=== PATIENT | female | born 1940 | race Caucasian/White ===

== ENCOUNTER → 2018-09-01 | Outpatient (CLI) | payer OTHER ==
[~2018-09-01] MED LIST: ? BP MED; ? CHOLESTEROL MED; ASPI325 PO; ATOR20 PO; CLOP75 PO; CYAN1000 PO; DULO60 PO; FENO145 PO; FERR325 PO; HYDR1TAB94 PO; IBUP600 PO; INS70/30I SC; LEVEMIR FL100 UNIT/1 SC; METF500 PO; METO25ER PO; Mirapex0.125 MG PO; NAPR550 PO; NITR.4SL SL; Percocet 5-3251 EACH PO; TELM40 PO; TELM80 PO; TOUJEO SOL300 UNIT/1 SQ; VENL150ER PO; [UNRECOGNIZED DRUG - REMARK]
[2018-09-01 11:42] LABS: BASOPHILS ABSOLUTE AUTO 0.03 K/mm3 (0.00-0.23); BASOPHILS PERCENT AUTO 0 % (0-2); EOSINOPHILS ABSOLUTE AUTO 0.06 K/mm3 (0.00-0.68); EOSINOPHILS PERCENT AUTO 1 % (0-6); Hematocrit 40.2 % (33.0-51.0); Hemoglobin 13.2 g/dL (11.5-16.0); IMMATURE GRAN ABSOLUTE AUTO 0.04 K/mm3 (0.00-0.10); IMMATURE GRAN PERCENT AUTO 0 % (0-1); LYMPHOCYTES ABSOLUTE AUTO 0.85 K/mm3 (0.84-5.20); LYMPHOCYTES PERCENT AUTO 8 % (21-46); MONOCYTES ABSOLUTE AUTO 0.63 K/mm3 (0.16-1.47); MONOCYTES PERCENT AUTO 6 % (4-13); Mean Corpuscular HGB 27.6 pg (26.0-34.0); Mean Corpuscular HGB Conc 32.8 g/dL (31.5-36.5); Mean Corpuscular Volume 84 fL (80-100); Mean Platelet Volume 10.2 fL (9.1-12.4); NEUTROPHILS ABSOLUTE AUTO 9.35 K/mm3 (1.96-9.15); NEUTROPHILS PERCENT AUTO 85 % (41-73); Platelet Count 314 K/mm3 (150-400); RDW Coefficient Variation 13.7 % (11.7-14.2); Red Blood Cell Count 4.79 M/mm3 (3.80-5.20); White Blood Cell Count 10.96 K/mm3 (4.00-11.30)
[2018-09-01 12:33] LABS: Albumin, Blood 4.1 g/dL (3.4-5.0); Albumin/Globulin Ratio 0.9 (0.8-1.8); Bilirubin, Total 0.6 mg/dL (0.1-1.0); Bun/Creatinine Ratio 17.9 (12.0-20.0); Calcium, Blood 8.7 mg/dL (8.5-10.1); Creatinine, Blood 2.35 mg/dL (0.40-1.00); Globulin, Blood 4.4 g/dL (2.2-4.0); Total Protein, Blood 8.5 g/dL (6.4-8.2)
[2018-09-01 12:34] LABS: Potassium, Blood 5.4 mmol/L (3.5-5.5)
== END ==
LOC: LAB EV 11:39 → LAB SHORT 11:39
PROVIDERS: Emergency Medicine
DX: R10.9 Unspecified abdominal pain (principal)
CPT/HCPCS: 80053; 83690; 85025

== ENCOUNTER → 2018-12-16 | Outpatient (CLI) | payer OTHER | END | disposition home or self-care (01) | LOC: LAB SHORT 14:06 → LAB 14:06 | DX: K62.89 Other specified diseases of anus and rectum (principal) | CPT/HCPCS: 87070; 87075; 87077; 87147; 87186; 87205 ==

== ENCOUNTER 2020-01-04 09:30 | Day surgery (SDC) | payer OTHER ==
[~2020-01-04] VITALS: Ht 165.1 cm; Wt 65.5 kg
[2020-01-04] MEDS ORDERED: Plavix75 MG (10:49)
--- NOTE | 2020-01-04 10:57 | NUR ---
01/04/20 1057 Lena Hudson 1 IV MISS IN [facility] BY [facility] 1 M[facility]V [facility] 1 MISSIED IV IN [facility] 1 MISSED IV IN RFA BY RN 1 IVMISS IN RH BY RN VEIN DISAPERRED 1 GOOD IV IN LAC BY RN PT TOW
--- NOTE | 2020-01-04 11:55 | NUR ---
01/04/20 1155 Luci Bernabe V PT AWAKE AND COMFORTABLE THROUGHOUT ENTIRE PROCEDURE. TOTAL OF 4MG IV VERSED GVIEN FOR SEDATION.
== END 2020-01-04 11:48 | disposition home or self-care (01) ==
LOC: ORSCSDS 09:30
PROVIDERS: Internal Medicine Gastroenterology
PROC: 0DBP8ZX Excision of Rectum, Via Natural or Artificial Opening Endoscopic, Diagnostic (ICD-10-PCS; principal; 2020-01-04 11:00)
DX: K62.5 Hemorrhage of anus and rectum (principal); K62.89 Other specified diseases of anus and rectum; E11.9 Type 2 diabetes mellitus without complications; E78.5 Hyperlipidemia, unspecified; F32.9 Major depressive disorder, single episode, unspecified; I73.9 Peripheral vascular disease, unspecified; Z87.891 Personal history of nicotine dependence; Z79.4 Long term (current) use of insulin; Z79.82 Long term (current) use of aspirin; Z79.84 Long term (current) use of oral hypoglycemic drugs; Z79.899 Other long term (current) drug therapy
CPT/HCPCS: 82947; 88305; 88312; J2250; J2704; J7120; J7799

== ENCOUNTER 2021-08-02 02:12 | Day surgery (SDC) | payer OTHER ==
[~2021-08-02 02:12] MED LIST changes: +Plavix75 MG
== END 2021-08-02 23:08 | disposition home or self-care (01) ==
LOC: WOUND 02:12
DX: L98.499 Non-pressure chronic ulcer of skin of other sites with unspecified severity (principal)
CPT/HCPCS: A9270; G0463

== ENCOUNTER 2021-08-08 01:19 | Day surgery (SDC) | payer OTHER | END 2021-08-08 23:06 | disposition home or self-care (01) | LOC: WOUND 01:19 | DX: L98.499 Non-pressure chronic ulcer of skin of other sites with unspecified severity (principal); Z88.0 Allergy status to penicillin | CPT/HCPCS: A9270; G0463 ==

== ENCOUNTER 2021-09-06 05:00 | Day surgery (SDC) | payer OTHER | END 2021-09-06 23:05 | disposition home or self-care (01) | LOC: WOUND 05:00 | DX: L98.499 Non-pressure chronic ulcer of skin of other sites with unspecified severity (principal); E11.9 Type 2 diabetes mellitus without complications | CPT/HCPCS: A9270; G0463 ==

== ENCOUNTER → 2021-09-11 | Outpatient (CLI) | payer OTHER | END | disposition home or self-care (01) | LOC: LAB 13:39 → LAB SHORT 13:39 | DX: K50.819 Crohn's disease of both small and large intestine with unspecified complications (principal); L98.498 Non-pressure chronic ulcer of skin of other sites with other specified severity; L92.8 Other granulomatous disorders of the skin and subcutaneous tissue | CPT/HCPCS: 83993 ==

== ENCOUNTER → 2023-05-03 | Outpatient (CLI) | payer OTHER ==
[~2023-05-03] MED LIST changes: +CATAPRES0.1 MG PO; +GABA300 PO; +[UNRECOGNIZED DRUG - OTHER] UD
[2023-05-03 18:45] LABS: Creatinine, Urine Random 79.8 mg/dL (27.00-270.00); Protein/Creat Ratio, Ur Random 0.6
== END | disposition home or self-care (01) ==
LOC: LAB 11:29 → LAB SHORT 11:29
PROVIDERS: Surgery
DX: N18.4 Chronic kidney disease, stage 4 (severe) (principal)
CPT/HCPCS: 82570; 84156

== ENCOUNTER → 2025-02-04 | Outpatient (CLI) | payer OTHER ==
[2025-02-04 11:55] LABS: Source, Urine Voided
[2025-02-04 13:12] LABS: Appearance, Urine Clear (Clear); Bilirubin, Urine Neg (Neg); Blood, Urine Neg (Neg); Color, Urine Yellow (P-Yellow); Glucose Qualitative, Urine Neg (Neg); Ketones, Urine Neg (Neg); Leukocyte Esterase, Urine 1+ (Neg); Nitrite, Urine Neg (Neg); Protein, Urine 1+ (Neg); Specific Gravity, Urine 1.015 (1.003-1.022); Urobilinogen, Urine NORM (Normal)
[2025-02-04 13:22] LABS: Bacteria Mod /hpf; Red Blood Cells, Urine 0-2 /hpf (0-2); Squamous Epithelial Cells Few /hpf (Few)
== END ==
LOC: LAB SHORT 11:30 → LAB 11:30
PROVIDERS: Hospitalist
DX: I12.9 Hypertensive chronic kidney disease with stage 1 through stage 4 chronic kidney disease, or unspecified chronic kidney disease (principal); E11.22 Type 2 diabetes mellitus with diabetic chronic kidney disease; N18.4 Chronic kidney disease, stage 4 (severe); R82.90 Unspecified abnormal findings in urine
CPT/HCPCS: 81001; 87086

== ENCOUNTER → 2025-05-06 | Outpatient (CLI) | payer OTHER ==
[2025-05-06 11:27] LABS: Source, Urine Clean Catch
[2025-05-06 12:00] LABS: Bilirubin, Urine Neg (Neg); Glucose Qualitative, Urine Neg (Neg); Ketones, Urine Neg (Neg); Leukocyte Esterase, Urine 3+ (Neg); Protein, Urine 3+ (Neg); Specific Gravity, Urine 1.015 (1.003-1.022); Urobilinogen, Urine NORM (Normal)
[2025-05-06 12:12] LABS: Color, Urine Yellow (P-Yellow)
[2025-05-06 12:15] LABS: White Blood Cells, Urine TNTC /hpf (0-5)
== END ==
LOC: LAB 08:30 → LAB SHORT 08:30
PROVIDERS: Hospitalist
DX: R82.90 Unspecified abnormal findings in urine (principal); E11.22 Type 2 diabetes mellitus with diabetic chronic kidney disease; I12.9 Hypertensive chronic kidney disease with stage 1 through stage 4 chronic kidney disease, or unspecified chronic kidney disease; N18.4 Chronic kidney disease, stage 4 (severe)
CPT/HCPCS: 81001; 87077; 87086; 87186